=== PATIENT | male | born 1995 | race Two or more races ===

== ENCOUNTER 2017-07-11 08:12 | Emergency (ER) | payer MEDICAID ==
[~2017-07-11] VITALS: Ht 162.6 cm; Wt 73.7 kg
[2017-07-11 08:14] VITALS: BP 143/82
== END 2017-07-11 09:52 | disposition home or self-care (01) ==
LOC: ED 09:18
DX: S60.111A Contusion of right thumb with damage to nail, initial encounter (principal); W23.0XXA Caught, crushed, jammed, or pinched between moving objects, initial encounter; Y93.89 Activity, other specified; Y99.8 Other external cause status; Y92.89 Other specified places as the place of occurrence of the external cause
CPT/HCPCS: 99284